=== PATIENT | female | born 1935 | race Caucasian/White ===

== ENCOUNTER 2016-06-20 11:38 | Outpatient (CLI) | payer MEDICARE, OTHER ==
--- NOTE | 2016-06-20 12:31 | DIAGNOSTIC IMAGING REPORT ---
PROCEDURE: XR HIP 2VW W W/O AP PELVIS-RT INDICATION: RIGHT HIP PAIN/BACK PAIN,LUMBAR/DIABETES/HTN TECHNIQUE: AP view of the pelvis and hips with lateral view of the right hip. COMPARISON: None. FINDINGS: Lumbar laminectomy and fusion. Right HIP: Osseous structures and joint spaces are normal. PELVIS: Osseous pelvis is normal. IMPRESSION: 1. Negative pelvis and right hip.
== END 2016-06-20 23:00 ==
LOC: XR SRH 11:38
DX: M25.551 Pain in right hip (principal); M54.5 Low back pain; E11.9 Type 2 diabetes mellitus without complications; I10 Essential (primary) hypertension